=== PATIENT | female | born 1980 | race Caucasian/White ===

== ENCOUNTER 2020-03-25 20:10 | Observation (INO) | payer MEDICAID, SELFPAY ==
--- NOTE | ~2020-03-25 | CT_ITS ---
EXAMINATION: CT abdomen pelvis wo con DATE: 03/25/2020 23:43 INDICATION: Rectal pain. Rectal mass. TECHNIQUE: Computed tomography (CT) of the abdomen and pelvis was performed without intravenous contr ast. Automated exposure control and iterative reconstruction technique were employed. The dose-length product was 1377.33 mGy-cm. COMPARISON: CT abdomen and pelvis 10/30/2015 FINDINGS: The visualized portions of the lung bases demonstrate mild atelectasis. No pleural effusion . The heart size is normal. No pericardial effusion. The liver, gallbladder, spleen, pancreas, and ri ght adrenal gland are normal. There is a 1.9 cm mass in left adrenal gland measuring low-attenuation, consistent with an adenoma. The kidneys are normal. There is no urolithiasis. There is wall thickeni ng of the rectum with surrounding fat stranding. There is a 1.8 cm relatively low-attenuation mass in the wall of the rectum. There are no dilated loops of bowel. The appendix is normal. There are no pa thologically enlarged lymph nodes. There is no free intraperitoneal fluid. There is mild lumbar spond ylosis. IMPRESSION: 1. Proctitis. A 1.8 cm low-attenuation mass in the wall of the rectum may be phlegmon or developing a bscess. Reviewed, dictated and finalized at location A. IMPRESSION: 1. Proctitis. A 1.8 cm low-attenuation mass in the wall of the rectum may be ph legmon or developing abscess.
[2020-03-25 20:28] VITALS: BP 139/79; PULSE 107; RESP 18; TEMP 37; O2SAT 100
[2020-03-25 20:42] LABS: Basophils Percent Auto 0.4 % (0.2-1.2); Eosinophils Absolute Auto 0.4 K/mm3 (0-0.3); Eosinophils Percent Auto 3.3 % (0-4.4); Hematocrit 39.3 % (37.0-47.0); Hemoglobin 13.4 g/dL (12.0-15.0); Immature Granulocyte Absolute 0.04 K/mm3 (0.00-0.031); Immature Granulocyte Percent A 0.4 % (0-0.5); Lymphocytes Absolute Auto 1.41 K/mm3 (0.9-3.2); Lymphocytes Percent Auto 13.1 % (18.3-44.2); Mean Corpuscular HGB Conc 34.1 g/dl (32-36); Mean Corpuscular Hemoglobin 32.8 pg (26-34); Mean Corpuscular Volume 96.1 fl (80-100); Mean Platelet Volume 10.5 fl (7.4-10.4); Monocytes Absolute Auto 0.6 K/mm3 (0.1-0.6); Monocytes Percent Auto 5.9 % (2.6-8.5); Neutrophils Absolute Auto 8.3 K/mm3 (1.3-6.7); Neutrophils Percent Auto 76.9 % (45.5-73.1); Platelet Count Result 253 k/mm3 (150-375); Red Blood Count 4.09 M/mm3 (4.2-5.4); Red Cell Distribution Width 12.4 % (11.5-14.5); White Blood Count 10.7 K/mm3 (4.5-10.0)
[2020-03-25 20:51] LABS: Alanine Aminotransferase 108 U/L (4-35); Albumin Level 4.5 g/dL (3.5-5.1); Alkaline Phosphatase 101 U/L (38-126); Aspartate Amino Transferase 53 U/L (14-36); Bilirubin,Total 1.1 mg/dL (0.2-1.3); Blood Urea Nitrogen 15 mg/dL (7-17); Calcium 9.3 mg/dL (8.4-10.2); Carbon Dioxide 20 mmol/L (22-30); Chloride 108 mmol/L (98-107); Estimated Glomerular Filt Rate 55; Glucose 105 mg/dL (65-105); Lipase 181 U/L (23-300); Potassium 3.9 mmol/L (3.4-5.0); Sodium 137 mmol/L (137-145)
[2020-03-25 21:54] LABS: Add Urine Microscopic? YES; Appearance Urine Clear (Clear); Bacteria Urine Trace /hpf; Bilirubin Urine Negative (Negative); Blood Urine Negative (Negative); Color Urine Amber (Yellow); Glucose Urine UA Negative (Negative); Ketones Urine Negative (Negative); Leukocyte Esterase Ur Negative LEU/UL (Negative); Mucus Urine Rare /lpf; Nitrate Urine Negative (Negative); Protein Urine Negative (Negative); RBC Urine 0-2 /hpf (0-2); Specific Grav Ur 1.019 (1.001-1.035); Squamous Epithelial Cell Urine Moderate /hpf (Few); WBC Urine 0-3 /hpf
[2020-03-25 23:01] VITALS: BP 119/78; PULSE 85; O2SAT 100
--- NOTE | 2020-03-25 23:06 | ED.ABDPAIN ---
HPI - Abdominal Pain General Chief Complaint: Abdominal Pain Stated Complaint: rectal pressure Time Seen by Provider: 03/25/20 22:53 Source: patient Mode of arrival: ambulatory Limitations: no limitations History of Present Illness HPI narrative: This patient is a 39 year old female who presents for evaluation of rectal pressure. Patient states she has history of external and internal hemorrhoids, and she had hemorrhoid surgery by Dr. Weston 2 years ago. She reports severe rectal pressure x 3 days. She reports nausea but no vomiting or fever. She feels as if there is a blockage, and she states she has pain with having a bowel movement. She denies rectal bleeding. Her last bowel movement was yesterday. Related Data Home Medications Medication Instructions Recorded Confirmed albuterol sulfate 0.5 ml INHALATION BID 03/26/20 03/26/20 albuterol sulfate 90 puff INHALATION Q4-6H PRN 03/26/20 03/26/20 lisinopril 10 mg PO DAILY 03/26/20 03/26/20 topiramate 400 mg PO BID 03/26/20 03/26/20 Allergies Allergy/AdvReac Type Severity Reaction Status Date / Time Penicillins Allergy Mild HIVES,VOMIT Verified 01/02/14 16:19 ING codeine Allergy Unknown Verified 01/02/14 16:19 Review of Systems Review of Systems: All systems reviewed & are unremarkable except as noted in HPI and below Constitutional: Constitutional: Denies chills and Denies fever(s) Gastrointestinal: Gastrointestinal: Denies abdominal pain, Reports constipation, Denies diarrhea, Reports nausea and Denies vomiting Genitourinary: Genitourinary: Reports nocturia [facility] Past Medical History Medical History (Updated 03/26/20 @ 05:44 by Valencia Steward MD) Hemorrhoids Hypertension Sleep apnea Social History Social History (Updated 03/26/20 @ 05:42 by Valencia Steward MD) Smoking packs per day: 0.5 Smoking cigarettes per day: 10.0 Smoking status: Current every day smoker Alcohol intake: never Substance use: never Gender identity (if verbalized by the patient): Female Exam Const: General: alert Orientation/consciousness: patient oriented x3 Other: patient is tearful Chest: Chest palpation & inspection: normal inspection of the chest Resp: Effort & Inspection: normal respiratory effort and no retractions Auscultation: clear to auscultation bilaterally Cardio: Rate: regular rate Rhythm: regular rhythm Heart sounds: no murmurs GI: GI Palp: Yes Soft to palpation, No Tenderness to palpation present (GI), No Guarding due to palpation present (GI) and No Rigid due to palpation Rectal Exam: tenderness (posterior rectum with possible mass, no blood) Back/Spine/Pelvis: Back: no CVA tenderness Skin: General skin exam: normal color Rashes: no rashes Neuro: General: patient oriented x3 and moves all extremities Course Consultations Consultation #1: I Discussed case with Dr. Drummond who accepts patient to his service for rectal abscess Date: 03/26/20 Time: 00:37 Vital Signs Vital signs: Vital Signs Temperature 98.6 F 03/25/20 20:28 Pulse Rate 107 H 03/25/20 20:28 Respiratory Rate 18 03/25/20 20:28 Blood Pressure 139/79 03/25/20 20:28 Pulse Oximetry 100 03/25/20 20:28 Temperature 97.8 F 03/26/20 02:00 Pulse Rate 78 03/26/20 02:00 Respiratory Rate 18 03/26/20 02:00 Blood Pressure 119/71 03/26/20 02:00 Pulse Oximetry 98 03/26/20 02:00 MDM - Abdominal Pain Lab Data Attestation: I reviewed the patient's lab results. Result diagrams: 03/25/20 20:32 03/25/20 20:32 Labs: Lab Results 03/25/20 03/25/20 03/25/20 Range/Units 20:32 20:32 21:44 WBC 10.7 H (4.5-10.0) K/mm3 RBC 4.09 L (4.2-5.4) M/mm3 Hgb 13.4 (12.0-15.0) g/dL Hct 39.3 (37.0-47.0) % MCV 96.1 (80-100) fl MCH 32.8 (26-34) pg MCHC 34.1 (32-36) g/dl RDW 12.4 (11.5-14.5) % Plt Count 253 (150-375) k/mm3 MPV 10.5 H (7.4-10.4) fl Immature Gran % (
[2020-03-25] MEDS: ONDANSETRON INJ 4 MG/2 ML VIAL IV PUSH (23:16)
[2020-03-26] VITALS (14 sets, daily range): BP systolic 102–124; BP diastolic 51–81; PULSE 56–88; RESP 14–20; TEMP 36.2–36.8; O2SAT 95–100; BMI 40.6
--- NOTE | 2020-03-26 01:59 | PC.NURSE ---
100mL of Flagyl given, system would not allow me to chart. Discussed with ED charge nurse, paper filled out to send to pharmacy. Floor nurse made aware.
--- NOTE | 2020-03-26 02:15 | PC.NURSE ---
This patient, Carolina Shah, was admitted to [facility] Surg Room 311-01. Patient/family oriented to hospital policies and general routines including ID bracelet, bed and alarms, visiting hours, pain management, procedures, bathroom and other care routines, personal items, smoking policy, room service/diet, and visiting hours. Valuables list has been completed. Information on how to activate the Rapid Response Team has been discussed. Patient/Family are encouraged to report perceived risks to care and to ask questions if they do not understand what they are told or what they should do.
[2020-03-26] MEDS: LACTATED RINGERS 1,000 ML 125 ML IV CONT ×3 (02:48→17:22)
[2020-03-26] MEDS: WATER FOR IRRIGATION, STERILE 1,000 ML BOTTLE 1000 ML (03:55)
[2020-03-26 08:30] LABS: Glucose Point of Care 100 (65-105)
[2020-03-26] MEDS: metroNIDAZOLE 500 MG/ISO 100ML 500 MG/100 ML BAG 100 MG IVPB ×3 (08:32→17:26)
--- NOTE | 2020-03-26 10:09 | PM.IMHP ---
H&P: HPI History of Present Illness Chief complaint: rectal abscess Narrative: Carolina Shah is a 39 year old obese female with a history of COPD, asthma, obstructive sleep apnea, and IBS, who presented to the emergency department for evaluation of rectal pressure and pain. The patient reports first noticing rectal pressure about 3-4 days ago and felt it was difficult to have a bowel movement. The pressure continued to worsen. She thought initially that she was constipated and took a dose of her Linzess, which produced multiple loose bowel movements. She reports pain with bowel movements, but normal color and consistency for her. Denies any mucus or blood in the stool. She also reports associated nausea with a decreased appetite over the past 2 days. Denies fever or chills. Due to the persistent rectal pressure and pain, she presented to the emergency department for further evaluation. CT scan of the abdomen and pelvis showed proctitis with a 1.8 cm low-attenuation mass in the wall of the rectum that could be phlegmon or developing abscess. Labs revealed a white blood cell count 10,700, otherwise unremarkable labs. Our service was contacted and she was admitted for surgical evaluation and started on IV antibiotics and IV fluids. The patient is now being seen on the medical floor. She reports difficulty to start urination, but denies dysuria, hematuria, or any other urinary complaints. She has voided already this morning. Denies any recent trauma to the rectum or having anal intercourse. No recent antibiotic use. Denies a history of inflammatory bowel disease. Review of Systems Constitutional: Constitutional: Reports as per HPI, Denies chills, Denies excessive sweating, Denies fatigue, Denies fever(s), Denies headache(s), Reports poor appetite and Denies weakness Eyes: Eyes: Denies change in vision and Denies loss of vision ENT: Reports Normal hearing present, Denies dizziness and Denies headache(s) Cardiovascular: Cardiovascular: Denies chest pain, Denies syncope, Denies leg edema, Denies lightheadedness, Denies radiating jaw, neck or arm pain and Denies dyspnea Respiratory: Respiratory: Denies cough, Denies dyspnea and Denies wheezing Gastrointestinal: Gastrointestinal: Reports as per HPI, Reports no additional gastrointestinal complaints, Denies abdominal pain, Denies melena, Denies bloating, Denies hematochezia, Denies dysphagia, Denies fecal incontinence, Denies diarrhea, Reports nausea, Denies vomiting and Reports other (Rectal pressure and pain) Genitourinary: Genitourinary: Reports no additional female genitourinary complaints, Denies hematuria, Reports urinary frequency, Denies nocturia, Denies dysuria, Denies pelvic pain and Denies urinary urgency Musculoskeletal: Musculoskeletal: Denies deformity, Denies joint swelling, Denies radiating pain into limb and Denies tingling Integumentary/Breasts: Skin/Breast: Denies pruritus, Denies wounds and Denies jaundice Neurologic: Reports Normal hearing present, Denies confusion, Denies dizziness, Denies syncope, Denies headache(s), Denies loss of vision, Denies tingling, Denies tremor(s) and Denies weakness Psychiatric: Psychiatric: Denies anxiety, Denies confusion and Denies depression Endocrine: Endocrine: Denies cold intolerance, Denies excessive sweating and Denies heat intolerance Hematologic/Lymphatic: Hematologic/Lymphatic: Denies easy bleeding and Denies easy bruising PMFSH Past Medical History Medical History (Updated 03/26/20 @ 10:34 by JEAN CLAUDE Dash) Asthma COPD (chronic obstructive pulmonary disease) Hemorrhoids History of diabetes mellitus, type II Previously on oral medication a over 3 years ago, but was taken off the medication once she had more than 150 pound weight loss. Hypertension Irritable bowel syndrome (IBS) with constipation. Takes Linzess as needed. Sleep apnea compliant with CPAP Surgical History Surgical History (Updated 03/26/20 @ 10
[2020-03-26] MEDS: ONDANSETRON INJ 4 MG/2 ML VIAL IV PUSH (13:30)
[2020-03-26 13:50] LABS: Glucose Point of Care 87 (65-105)
--- NOTE | 2020-03-26 13:55 | WPDANESEPPF ---
Anes - Initial Pre Proc Eval Procedure: Operation Date: 03/26/20 14:30 Proposed Procedures p Rectal Exam Under Anesthesia, - Erickson Drummond DO s Possible Incision and Drainage Adriana Rectal Abscess - Erickosn Drummond DO Date/Time: 03/26/20 13:55 Surgeon: Erickson Drummond DO Pre Op Diagnosis: rectal abscess Patient Data Age: 39 Gender: F Height: 5 ft 5 in Weight: 110.9 kg Last Vital Signs Temp 98.2 F 03/26/20 06:00 Pulse 67 03/26/20 06:00 Resp 20 03/26/20 06:00 BP 115/59 L 03/26/20 06:00 Pulse Ox 99 03/26/20 06:00 Allergies Allergy/AdvReac Type Severity Reaction Status Date / Time Penicillins Allergy Mild HIVES,VOMIT Verified 01/02/14 16:19 ING codeine Allergy Unknown Verified 01/02/14 16:19 Home Medications Medication Instructions Recorded Confirmed Type albuterol sulfate 0.5 ml INHALATION BID 03/26/20 03/26/20 History albuterol sulfate 90 puff INHALATION Q4-6H PRN 03/26/20 03/26/20 History lisinopril 10 mg PO DAILY 03/26/20 03/26/20 History topiramate 400 mg PO BID 03/26/20 03/26/20 History Laboratory Tests 03/25/20 03/25/20 03/25/20 20:32 20:32 21:44 WBC 10.7 K/mm3 H K/mm3 (4.5-10.0) RBC 4.09 M/mm3 L M/mm3 (4.2-5.4) Hgb 13.4 g/dL g/dL (12.0-15.0) Hct 39.3 % % (37.0-47.0) MCV 96.1 fl fl (80-100) MCH 32.8 pg pg (26-34) MCHC 34.1 g/dl g/dl (32-36) RDW 12.4 % % (11.5-14.5) Plt Count 253 k/mm3 k/mm3 (150-375) MPV 10.5 fl H fl (7.4-10.4) Immature Gran % (Auto) 0.4 % % (0-0.5) Neut % (Auto) 76.9 % H % (45.5-73.1) Lymph % (Auto) 13.1 % L % (18.3-44.2) [place] % (Auto) 5.9 % % (2.6-8.5) Eos % (Auto) 3.3 % % (0-4.4) Baso % (Auto) 0.4 % % (0.2-1.2) Lymph # (Auto) 1.41 K/mm3 K/mm3 (0.9-3.2) [place] # (Auto) 0.6 K/mm3 K/mm3 (0.1-0.6) Eos # (Auto) 0.4 K/mm3 H K/mm3 (0-0.3) Baso # (Auto) 0.0 K/mm3 K/mm3 (0.0-0.1) Abs Immat Gran (auto) 0.04 K/mm3 H K/mm3 (0.00-0.031) Absolute Neuts (auto) 8.3 K/mm3 H K/mm3 (1.3-6.7) Absolute Nucleated RBC 0.0 K/mm3 K/mm3 (0.0-0.012) Nucleated RBC % 0.0 % % (0.0-0.2) Sodium 137 mmol/L mmol/L (137-145) Potassium 3.9 mmol/L mmol/L (3.4-5.0) Chloride 108 mmol/L H mmol/L (98-107) Carbon Dioxide 20 mmol/L L mmol/L (22-30) BUN 15 mg/dL mg/dL (7-17) Creatinine 1.10 mg/dL H mg/dL (0.7-1.0) Estim Creat Clear Calc Not Reportable Estimated GFR 55 L (59 - ) Glucose 105 mg/dL mg/dL (65-105) POC Capillary Glucose Calcium 9.3 mg/dL mg/dL (8.4-10.2) Total Bilirubin 1.1 mg/dL mg/dL (0.2-1.3) AST 53 U/L H U/L (14-36) ALT 108 U/L H U/L (4-35) Alkaline Phosphatase 101 U/L U/L (38-126) Total Protein 8.0 g/dL g/dL (6.3-8.2) Albumin 4.5 g/dL g/dL (3.5-5.1) Lipase 181 U/L U/L (23-300) Urine Color Jan[place] (Yellow) Urine Appearance Clear (Clear) Urine pH 7.0 (5.0-9.0) Ur Specific [place] 1.019 (1.001-1.035) Urine Protein Negative mg/dL mg/dL (Negative) Urine Glucose (UA) Negative mg/dL mg/dL (Negative) Urine Ketones Negative mg/dL mg/dL (Negative) Ur Blood (Man) Negative (Negative) Urine Nitrate Negative (Negative) Urine Bilirubin Negative (Negative) Urine Urobilinogen 4.0 mg/dL H mg/dL (<2.0) Leukocyte Esterase Rfl Negative SHABNAM/UL SHABNAM/UL (Negative) Urine RBC 0-2 /hpf /hpf (0-2) Urine WBC 0-3 /hpf /hpf Ur Squamous Epith Cells Moderate /hpf H /hpf (Few) Urine Bacteria Trace /hpf /hpf Hyaline C
[2020-03-26] MEDS: DEXTROSE 50% 25 GM/50 ML SYRINGE IV PUSH (13:58)
[2020-03-26] MEDS: LACTATED RINGERS 1,000 ML 30 ML IV CONT (14:09)
[2020-03-26 14:52] LABS: Glucose Point of Care 113 (65-105)
[2020-03-26] MEDS: BUPIVACAINE/EPINEPHRINE 0.5% 30 ML VIAL INFILTRATE (15:18)
[2020-03-26] MEDS: ALBUTEROL SULFATE NEB 2.5 MG/3 ML INH INHALATION (16:04)
--- NOTE | 2020-03-26 16:52 | P.OP_ITS ---
Procedure Note - Detailed Date of procedure: 03/26/20 Pre-op diagnosis: Rectal pain, proctitis Post-op diagnosis: same Procedure performed: Rectal exam under anesthesia Description of procedure: * procedure as well as risks, benefits, and alternatives were discussed with the patient. Written consent was obtained and placed in chart prior to procedure. Patient was brought back to surgical suite. She was placed supine on operating table. Time-out was done to confirm patient and procedure. She was then repositioned into dorsal lithotomy position. IV sedation was administered by the anesthesia department. Her perirectal region was prepped and draped in sterile fashion using Betadine prep. Digital rectal exam was initially performed. No palpable mass was noted. A [place]-Ariza anoscope was then inserted and the anal rectal canal was carefully inspected. In the right posterior region there appeared to be a firm area of the rectum. No definite fluctuance was identified. A small incision was made over the area of firm rectal mucosa, no significant purulence drainage was noted. Careful perianal exam was also performed and no evidence of fluctuance on the skin surface was noted. After carefully inspecting the remainder of the anal rectal canal, no other abnormalities were noted. The rectum was irrigated with sterile saline and hemostasis appeared adequate. Fluff gauze was applied followed by mesh underwear. Patient was then awakened from anesthesia and transferred to recovery. Anesthesia: GLMA Surgeon: Erickson Drummond DO Estimated blood loss (mL): 2 Drains: No Packing: No Pathology: none sent Complications: No immediate complications Condition: stable Disposition: floor Findings: This is a 39-year-old woman who presented to the emergency department with rectal pain over the past 4 days. She denied any fevers or chills, and denies any palpable mass. She is experiencing tenesmus and has not been able to have much of a bowel movement for the past 4 days. She does have a history of hemorrhoids, but denies any recent problems. In the emergency department a CT of her pelvis was performed and this showed evidence of proctitis with possible phlegmon or abscess developing. Discussions were made with the patient about treatment options, and decision was made to proceed with rectal exam under anesthesia with possible incision and drainage of perirectal abscess. Rectal exam under anesthesia was performed. After careful inspection under anesthesia, proctitis was noted particularly in the right posterior region of the rectum at approximately 6-8 cm from the anal verge. There is no definite fluctuance, and a small incision was made over this area and no purulence dr airasheed was noted. No other masses or abnormalities were noted. No specimens were obtained for pathology.
[2020-03-26] MEDS: PROMETHAZINE HCL 25 MG/ML AMPUL 12.5 MG IV PUSH (17:36)
[2020-03-26 18:35] LABS: Glucose Point of Care 92 (65-105)
[2020-03-26 23:29] LABS: Glucose Point of Care 133 (65-105)
[2020-03-27] MEDS: metroNIDAZOLE 500 MG/ISO 100ML 500 MG/100 ML BAG 100 MG IVPB ×5 (00:16→23:28)
[2020-03-27 02:09] VITALS: BP 113/65; PULSE 76; RESP 18; TEMP 36.3; O2SAT 100
[2020-03-27] MEDS: LACTATED RINGERS 1,000 ML 125 ML IV CONT (03:24)
[2020-03-27 06:10] VITALS: BP 127/77; PULSE 76; RESP 18; TEMP 36.2; O2SAT 99
[2020-03-27 06:30] LABS: Basophils Percent Auto 0.1 % (0.2-1.2); Eosinophils Absolute Auto 0.1 K/mm3 (0-0.3); Eosinophils Percent Auto 1.3 % (0-4.4); Hemoglobin 11.3 g/dL (12.0-15.0); Immature Granulocyte Absolute 0.02 K/mm3 (0.00-0.031); Immature Granulocyte Percent A 0.2 % (0-0.5); Lymphocytes Absolute Auto 1.47 K/mm3 (0.9-3.2); Lymphocytes Percent Auto 17.4 % (18.3-44.2); Mean Corpuscular HGB Conc 33.2 g/dl (32-36); Mean Corpuscular Hemoglobin 31.9 pg (26-34); Mean Platelet Volume 10.7 fl (7.4-10.4); Monocytes Absolute Auto 0.4 K/mm3 (0.1-0.6); Monocytes Percent Auto 5.1 % (2.6-8.5); Neutrophils Absolute Auto 6.4 K/mm3 (1.3-6.7); Neutrophils Percent Auto 75.9 % (45.5-73.1); Platelet Count Result 237 k/mm3 (150-375); Red Blood Count 3.54 M/mm3 (4.2-5.4); White Blood Count 8.4 K/mm3 (4.5-10.0)
[2020-03-27 06:47] LABS: Alanine Aminotransferase 105 U/L (4-35); Albumin Level 3.6 g/dL (3.5-5.1); Alkaline Phosphatase 79 U/L (38-126); Aspartate Amino Transferase 48 U/L (14-36); Bilirubin,Total 0.8 mg/dL (0.2-1.3); Blood Urea Nitrogen 13 mg/dL (7-17); Calcium 8.9 mg/dL (8.4-10.2); Carbon Dioxide 21 mmol/L (22-30); Chloride 108 mmol/L (98-107); Estimated CRCL calculation 82 ml/min; Estimated Glomerular Filt Rate > 60; Glucose 90 mg/dL (65-105); Sodium 138 mmol/L (137-145)
--- NOTE | 2020-03-27 07:40 | PM.PNGS ---
Progress Note: A&P Assessment and Plan (1) Proctitis: Code(s): K62.89 - Other specified diseases of anus and rectum Status: Acute Assessment and Plan: Continue Levaquin and flagyl Stool softeners Await GI Eval (2) Sleep apnea: Code(s): G47.30 - Sleep apnea, unspecified Status: Acute (3) Tobacco abuse: Code(s): Z72.0 - Tobacco use Status: Acute (4) COPD (chronic obstructive pulmonary disease): Code(s): J44.9 - Chronic obstructive pulmonary disease, unspecified Status: Acute Subjective Subjective Date/Time Seen: 03/27/20 07:40 Still having rectal pain. No bleeding noted. No fevers. Exam GI: Other: No perianal/perirectal abscess evident Objective Data Vital Signs Vital Signs: Vital Signs - 24 hr 03/26/20 13:35 03/26/20 15:38 03/26/20 15:50 Temperature 36.7 C 36.3 C L Pulse Rate 56 L 85 65 Respiratory Rate 18 20 18 Blood Pressure 103/51 L 113/79 102/51 L Pulse Oximetry 98 95 95 03/26/20 16:05 03/26/20 16:20 03/26/20 16:25 Temperature 36.4 C L Pulse Rate 64 63 61 Respiratory Rate 16 18 18 Blood Pressure 107/70 105/70 121/81 Pulse Oximetry 100 96 97 03/26/20 16:40 03/26/20 17:10 03/26/20 18:10 Temperature 36.4 C L 36.5 C 36.8 C Pulse Rate 61 64 65 Respiratory Rate 16 16 16 Blood Pressure 121/81 124/78 115/61 Pulse Oximetry 97 97 99 03/26/20 22:00 03/27/20 02:09 03/27/20 06:10 Temperature 36.2 C L 36.3 C L 36.2 C L Pulse Rate 88 76 76 Respiratory Rate 18 18 18 Blood Pressure 118/69 113/65 127/77 Pulse Oximetry 100 100 99 Intake/Output Intake/Output: Intake & Output 03/24/20 03/25/20 03/26/20 03/27/20 23:59 23:59 23:59 23:59 Intake Total 2700 1450 Output Total 200 500 Balance 2500 950 Meds/Results Medications: Active Medications Generic Name Dose Route Start Last Admin Trade Name Freq PRN Reason Stop Dose Admin Acetaminophen 1,000 mg 03/27/20 07:39 Tylenol Tablet PO Q6H PRN Mild Pain (1-3) or Fever Hydromorphone HCl 0.5 mg 03/26/20 00:38 03/27/20 03:22 Dilaudid Inj IV PUSH 0.5 mg Q4H PRN Administration Pain Rated 7-10 Levofloxacin/Dextrose 750 mg in 150 mls @ 100 mls/hr 03/27/20 06:00 03/27/20 05:41 Levaquin 750 Mg/D5w 150 Ml IVPB 100 mls/hr Q24H ESTEPHANIA Administration Metronidazole 500 mg in 100 mls @ 100 mls/hr 03/26/20 07:00 03/27/20 06:37 Flagyl 500 Mg/Iso Soln 100 Ml IVPB 100 mls/hr Q6HR ESTEPHANIA Infusion Lisinopril 10 mg 03/27/20 09:00 Prinivil PO DAILY ESTEPHANIA Non-Formulary Medication 0.5 ml 03/26/20 17:00 Albuterol Sulfate INHALATION 04/25/20 17:01 BID ESTEPHANIA Non-Formulary Medication 400 mg 03/26/20 17:00 Topiramate PO 04/25/20 17:01 BID ESTEPHANIA Promethazine HCl 12.5 mg 03/26/20 00:38 03/26/20 17:36 Phenergan Inj IV PUSH 12.5 mg Q6H PRN Administration Nausea Radiology Results: ITS Impressions Abdomen/Pelvis CT 03/25/20 23:46 IMPRESSION: 1. Proctitis. A 1.8 cm low-attenuation mass in the wall of the rectum may be phlegmon or developing abscess. Labs Labs: Laboratory Results - last 24 hr 03/26/20 03/26/20 03/26/20 08:26 12:04 13:47 WBC RBC Hgb Hct MCV MCH MCHC RDW Plt Count MPV Immature Gran % (Auto) Neut % (Auto) Lymph % (Auto) [place] % (Auto) Eos % (Auto) Baso % (Auto) Lymph # (Auto) [place] # (Auto) Eos # (Auto) Baso # (Auto) Abs Immat Gran (auto) Absolute Neuts (auto) Absolute Nucleated RBC Nucleated RBC % Sodium Potassium Chloride Carbon Dioxide BUN Creatinine Estim Creat Clear Calc Estimated GFR Glucose POC Capillary Glucose 100 92 87 Calcium Total Bilirubin AST ALT Alkaline Phosphatase Total Protein Albumin 03/26/20 03/26/20 03/27/20 14:49 22:00 06:05 WBC 8.4 RBC 3.54 L Hgb 11.3 L Hct 34.0 L MCV 96.0 MCH
--- NOTE | 2020-03-27 07:57 | WPDANESPN ---
Anes - Prog Note Post-Op Date/Time: 03/27/20 07:57 Cardiovascular status: normal Respiratory status: normal Airway patency: baseline Mental status: baseline Post-Op hydration status: normal Vital Signs: Last Vital Signs Temp 36.2 C L 03/27/20 06:10 Pulse 76 03/27/20 06:10 Resp 18 03/27/20 06:10 BP 127/77 03/27/20 06:10 Pulse Ox 99 03/27/20 06:10 I/O: Intake & Output 03/26/20 03/26/20 03/27/20 15:59 23:59 07:59 Intake Total 2200 350 1450 Output Total 200 500 Balance 2200 150 950 Laboratory Tests 03/27/20 06:05 03/27/20 06:05 03/26/20 03/26/20 03/26/20 08:26 12:04 13:47 WBC RBC Hgb Hct MCV MCH MCHC RDW Plt Count MPV Immature Gran % (Auto) Neut % (Auto) Lymph % (Auto) [place] % (Auto) Eos % (Auto) Baso % (Auto) Lymph # (Auto) [place] # (Auto) Eos # (Auto) Baso # (Auto) Abs Immat Gran (auto) Absolute Neuts (auto) Absolute Nucleated RBC Nucleated RBC % Sodium Potassium Chloride Carbon Dioxide BUN Creatinine Estim Creat Clear Calc Estimated GFR Glucose POC Capillary Glucose 100 92 87 Calcium Total Bilirubin AST ALT Alkaline Phosphatase Total Protein Albumin 03/26/20 03/26/20 03/27/20 14:49 22:00 06:05 WBC 8.4 RBC 3.54 L Hgb 11.3 L Hct 34.0 L MCV 96.0 MCH 31.9 MCHC 33.2 RDW 12.0 Plt Count 237 MPV 10.7 H Immature Gran % (Auto) 0.2 Neut % (Auto) 75.9 H Lymph % (Auto) 17.4 L [place] % (Auto) 5.1 Eos % (Auto) 1.3 Baso % (Auto) 0.1 L Lymph # (Auto) 1.47 [place] # (Auto) 0.4 Eos # (Auto) 0.1 Baso # (Auto) 0.0 Abs Immat Gran (auto) 0.02 Absolute Neuts (auto) 6.4 Absolute Nucleated RBC 0.0 Nucleated RBC % 0.0 Sodium Potassium Chloride Carbon Dioxide BUN Creatinine Estim Creat Clear Calc Estimated GFR Glucose POC Capillary Glucose 113 H 133 H Calcium Total Bilirubin AST ALT Alkaline Phosphatase Total Protein Albumin 03/27/20 06:05 WBC RBC Hgb Hct MCV MCH MCHC RDW Plt Count MPV Immature Gran % (Auto) Neut % (Auto) Lymph % (Auto) [place] % (Auto) Eos % (Auto) Baso % (Auto) Lymph # (Auto) [place] # (Auto) Eos # (Auto) Baso # (Auto) Abs Immat Gran (auto) Absolute Neuts (auto) Absolute Nucleated RBC Nucleated RBC % Sodium 138 Potassium 4.0 Chloride 108 H Carbon Dioxide 21 L BUN 13 Creatinine 1.00 Estim Creat Clear Calc 82 Estimated GFR > 60 Glucose 90 POC Capillary Glucose Calcium 8.9 Total Bilirubin 0.8 AST 48 H ALT 105 H Alkaline Phosphatase 79 Total Protein 7.0 Albumin 3.6 Post-procedural complaints: none Patient Feedback: Patient satisfied with anesthetic care.
[2020-03-27 08:27] LABS: Glucose Point of Care 103 (65-105)
[2020-03-27] MEDS: lisinopriL 10 MG TABLET PO (08:54)
[2020-03-27 10:18] VITALS: BP 111/59; PULSE 77; RESP 18; TEMP 36.4; O2SAT 98
[2020-03-27 10:37] LABS: Glucose Point of Care 80 (65-105)
[2020-03-27] MEDS: polyethylene glycoL 3350 17 GM POWD.PACK PO (12:08)
[2020-03-27 12:40] LABS: Glucose Point of Care 83 (65-105)
[2020-03-27 14:10] VITALS: BP 134/65; PULSE 61; RESP 18; TEMP 36.6; O2SAT 100
--- NOTE | 2020-03-27 16:19 | WPDGICN ---
Assessment and Plan Assessment and plan (1) Proctitis: Code(s): K62.89 - Other specified diseases of anus and rectum Status: Acute Assessment and Plan: given findings of proctitis will start rose marie moss reviewed findings of CT scan and surgery notes had colonoscopy 2 years ago and she is established with GI in [place]. (2) Abscess of rectum: Code(s): K61.1 - Rectal abscess Status: Acute Assessment and Plan: on iv antibiotics, could not be drained by surgery when had proctoscopy (3) Morbid obesity with BMI of 40.0-44.9, adult: Code(s): E66.01 - Morbid (severe) obesity due to excess calories; Z68.41 - Body mass index (BMI) 40.0-44.9, adult Status: Acute (4) Constipation: Code(s): K59.00 - Constipation, unspecified Status: Acute Assessment and Plan: she was using linzess prn ok to advance diet as tolerated (5) Tobacco abuse: Code(s): Z72.0 - Tobacco use Status: Acute (6) COPD (chronic obstructive pulmonary disease): Code(s): J44.9 - Chronic obstructive pulmonary disease, unspecified Status: Acute GI Consult Note Consult date/time: 03/27/20 16:19 Reason for consult: proctitis, rectal pressure HPI: Carolina Shah is a 39 year old female with history of COPD, asthma, obstructive sleep apnea, obesity, hemorrhoidectomy 2 years ago and IBS constipation for which she is seeing GI doctor at [facility]. She came to the emergency department because rectal pressure and pain for almost 4 days ago, also more difficulty than usual to have a bowel movement, she took linzess than is using as needed and had a loose bowel movements, she even thought that could have a UTI. Denies any mucus or blood in the stool. No fever or chills. CT scan of the abdomen and pelvis showed proctitis with a 1.8 cm low-attenuation mass in the wall of the rectum that could be phlegmon or developing abscess. white blood cell count 10,700. Yesterday she had proctoscopy with EUA, found to have proctitis in the right posterior region of the rectum at approximately 6-8 cm from the anal verge. No definite fluctuance, and a small incision was made over this area and no purulence drainage was noted. No other masses or abnormalities were noted. She is still experiencing similar symptoms. Had colonoscopy about 2 years ago just before hemorrhoidectomy and apparently was normal. No h/o IBD. Review of Systems Constitutional: Constitutional: Denies headache(s) and Denies weakness Eyes: Eyes: Denies blurry vision ENT: Reports Normal hearing present, Denies headache(s) and Denies neck pain Cardiovascular: Cardiovascular: Denies chest pain and Denies dyspnea Respiratory: Respiratory: Denies dyspnea Gastrointestinal: Gastrointestinal: Reports abdominal pain and Reports constipation Genitourinary: Genitourinary: Denies dysuria Musculoskeletal: Musculoskeletal: Denies neck pain Integumentary/Breasts: Skin/Breast: Denies dry skin Neurologic: Reports Normal hearing present, Denies headache(s) and Denies weakness Psychiatric: Psychiatric: Denies anxiety Endocrine: Endocrine: Denies change in body appearance Hematologic/Lymphatic: Hematologic/Lymphatic: Denies easy bleeding Allergic/Immunologic: Allergic/Immunologic: Denies urticaria PMF Past Medical History Medical History (Updated 03/27/20 @ 16:24 by Arnulfo Anders MD) Asthma Constipation COPD (chronic obstructive pulmonary disease) Hemorrhoids History of diabetes mellitus, type II Previously on oral medication a over 3 years ago, but was taken off the medication once she had more than 150 pound weight loss. Hypertension Irritable bowel syndrome (IBS) with constipation. Takes Linzess as needed. Sleep apnea compliant with CPAP Surgical History Surgical History (Updated 03/26/20 @ 10:45 by JEAN CLAUDE Dash) History of section x 3 with tubal ligation on last . Hist
[2020-03-27 17:31] LABS: Glucose Point of Care 82 (65-105)
[2020-03-27] MEDS: MESALAMINE 1,000 MG SUPP.RECT 1000 MG RECTAL (21:49)
[2020-03-27 21:56] LABS: Glucose Point of Care 129 (65-105)
[2020-03-27 22:00] VITALS: BP 115/72; PULSE 64; RESP 20; TEMP 36.6; O2SAT 99
[2020-03-28 06:00] VITALS: BP 101/67; PULSE 66; RESP 20; TEMP 36.6; O2SAT 99
[2020-03-28] MEDS: metroNIDAZOLE 500 MG/ISO 100ML 500 MG/100 ML BAG 100 MG IVPB (06:02)
[2020-03-28 08:17] LABS: Glucose Point of Care 99 (65-105)
[2020-03-28] MEDS: lisinopriL 10 MG TABLET PO (08:48)
[2020-03-28] MEDS: polyethylene glycoL 3350 17 GM POWD.PACK PO (08:48)
[2020-03-28 10:47] VITALS: O2SAT 98
--- NOTE | 2020-04-05 14:46 | PM.DS ---
DS: Admitting Diagnosis Admitting Diagnosis Admitting Diagnosis: Proctitis DS: Discharge Diagnosis Discharge Diagnosis (1) Proctitis: Code(s): K62.89 - Other specified diseases of anus and rectum Status: Acute DS: Summary Hospital Course Reason for hospitalization: proctitis with possible perirectal abscess Hospital Course: this is a 39-year-old woman who presented to the emergency department on 03/25/2020 with severe rectal pain and tenesmus. CT in the emergency department showed evidence of proctitis and a 1.8 cm soft tissue density which may be developing phlegmon or abscess. She was placed on broad-spectrum antibiotics and was admitted to the hospital for further treatment. She underwent rectal exam under anesthesia on 03/26/2020. Inflammation was noted but no abscess was identified. Gastroenterology was then consulted for further evaluation. She had had a recent colonoscopy about 2 years ago in [place] and has a data processing control clerk down there. Dr. Pink recommended Canasa suppositories and follow-up with a [facility] data processing control clerk as an outpatient. She was able to tolerate a regular diet and was discharged home on 03/28. Time spent discussing smoking cessation with patient: 3 to 10 minutes Status at Discharge Functional status at discharge: independent ambulation Overall status at discharge: patient is progressing back to baseline Time Spent with Patient Time attestation: Total time spent providing and/or coordinating discharge services: Time spent: Less than 30 minutes Discharge Plan Discharge Attending physician on discharge: Erickson Drummond Consulting providers: Arnulfo Anders ; Jaime Quesada V. ; Tamera Hadley Discharging Clinician: Erickson Drummond Patient Disposition: Home, Self-Care Activity: unlimited Diet: as tolerated Discharge Instructions: Follow up with Gastroenterolgist in [place] as scheduled next week Patient Instructions: Antibiotic Form, How to Stop Smoking (DC) Stand Alone Forms: General Discharge Information Follow-up/Referrals: Damien,Avtar English MD [Primary Care Provider] - Follow Up with Primary Dr Discharge Medications: New levofloxacin [Levaquin] 750 mg tablet 750 mg PO DAILY Qty: 7 RF: 0 metronidazole [Flagyl] 500 mg tablet 500 mg PO Q8H Qty: 21 RF: 0 mesalamine [Canasa] 1,000 mg suppository 1 gm RECTAL HS Qty: 30 RF: 0 hydrocodone-acetaminophen [[place]] 5-325 mg tablet 1 tablet PO Q4H PRN (Reason: pain) Qty: 10 RF: 0 Continued lisinopril 10 mg Tablet 10 mg PO DAILY RF: 0 albuterol sulfate 90 puff inhalation Q4-6H PRN (Reason: Asystole) RF: 0 topiramate 400 mg PO BID RF: 0 albuterol sulfate 0.5 ml inhalation BID RF: 0 Date of admission: 03/26/20 00:38 Primary Care Provider: DamienAvtar Admitting Provider: Erickson Drummond Discharge Date/Time: 03/28/20 11:10 Attending physician on admission: Erickson Drummond Condition: Stable Quality VTE Prophylaxis VTE prophylaxis: mechanical ordered
== END 2020-03-28 11:10 | disposition home or self-care (01) ==
LOC: ANHED 03-26 00:37 → ANH3MEDSUR 03-26 00:48
PROVIDERS: Admitting Provider Surgery; Emergency Provider General Practice; PCP Internal Medicine; Visit Provider Surgery
PROC: (CPT 45990; principal; 2020-03-26 14:30)
DX: K62.89 Other specified diseases of anus and rectum (principal); K61.1 Rectal abscess; J44.9 Chronic obstructive pulmonary disease, unspecified; G47.33 Obstructive sleep apnea (adult) (pediatric); K58.1 Irritable bowel syndrome with constipation; I10 Essential (primary) hypertension; E66.01 Morbid (severe) obesity due to excess calories; F17.210 Nicotine dependence, cigarettes, uncomplicated; Z68.41 Body mass index [BMI] 40.0-44.9, adult
CPT/HCPCS: 45990; 36415; 74176; 80053; 81001; 81025; 83690; 85025; 94640; 96361; 96365; 96366; 96367; 96374; 96375; 96376; 99285; A9270; G0378; G0379; J1170; J1956; J2250; J2405; J2550; J3010; J7120

== ENCOUNTER 2020-09-25 15:21 | Emergency (ER) | payer MEDICAID, SELFPAY ==
--- NOTE | ~2020-09-25 | XR_ITS ---
EXAMINATION: XR shoulder LT min 2V DATE: 09/25/2020 17:33 INDICATION: Several months of anterior left shoulder pain. Tendinitis.. TECHNIQUE: AP internally and externally rotated, AP oblique externally rotated and transscapular Y vi ews of the left shoulder were obtained. COMPARISON: 10/22/2010 FINDINGS: Normal alignment. No fracture. Glenohumeral joint is normal. Minimal acromioclavicular osteoarthriti s. Soft tissues are unremarkable. Visualized portions of the lungs are clear. IMPRESSION: Minimal acromioclavicular osteoarthritis. Reviewed, dictated and finalized at location A. ION STYLIST
[2020-09-25 15:32] VITALS: BP 116/71; PULSE 73; RESP 16; TEMP 36.6; O2SAT 99
[2020-09-25] MEDS: KETOROLAC (*BKC) 60 MG/2 ML VIAL IM (17:26)
--- NOTE | 2020-09-25 17:37 | ED.GENADULT ---
HPI - General Adult General Chief complaint: Extremity Problem,Nontraumatic Stated complaint: lt shoulder pain x 1 month Time Seen by Provider: 09/25/20 17:16 Source: RN notes reviewed History of Present Illness HPI narrative: Patient presents to emergency department from home for left shoulder pain. She states that shows been bothering her for the last several months but got worse in the past week she denies any direct trauma or injury to the shoulder. States the pain is located over the anterior shoulder and worse with movement of the shoulder she denies any fevers or chills chest pain shortness of breath numbness or tingling in the extremity elbow or wrist pain or any other symptoms Related Data Home Medications Medication Instructions Recorded Confirmed albuterol sulfate 0.5 ml INHALATION BID 03/26/20 03/26/20 albuterol sulfate 90 puff INHALATION Q4-6H PRN 03/26/20 03/26/20 lisinopril 10 mg PO DAILY 03/26/20 03/26/20 topiramate 400 mg PO BID 03/26/20 03/26/20 Allergies Allergy/AdvReac Type Severity Reaction Status Date / Time Penicillins Allergy Mild HIVES,VOMIT Verified 09/25/20 17:20 ING codeine Allergy Unknown Other Verified 09/25/20 17:20 Review of Systems Review of Systems: Narrative: Gen.: Denies fevers or chills CV: Denies chest pain Respiratory: Denies shortness of breath Musculoskeletal: See HPI Neuro: Denies numbness, tingling, weakness Skin: Denies rash Endo: Denies DM PMFSH Past Medical History Medical History Asthma Constipation COPD (chronic obstructive pulmonary disease) Hemorrhoids History of diabetes mellitus, type II Previously on oral medication a over 3 years ago, but was taken off the medication once she had more than 150 pound weight loss. Hypertension Irritable bowel syndrome (IBS) with constipation. Takes Linzess as needed. Sleep apnea compliant with CPAP Surgical History Surgical History (Updated 03/26/20 @ 10:45 by JEAN CLAUDE Dash) History of section x 3 with tubal ligation on last . History of colonoscopy 2 years ago prior to hemorrhoid intervention that was reportedly normal other than findings of the hemorrhoids. History of hemorrhoidectomy History of ventral hernia repair more than 17 years ago. Family History Family History Grandparent Crohn disease Mother Diabetes mellitus Social History Social History Social History: PCP: Dr. Quezada Smoking packs per day: 0.5 Smoking cigarettes per day: 10.0 Years smoked: 24 Smoking pack-years: 12.00 Smoking status: Current every day smoker Tobacco type: cigarettes Alcohol intake: current Substance use: never Additional living arrangements comments: Her aunt and oldest daughter live with her. Additional occupation/education comments: Works at [employer]. Gender identity (if verbalized by the patient): Female Spiritual care concerns: No Exam Narrative: Exam Narrative: APPEARANCE: No acute distress, nontoxic, resting in bed EYES: EOMI HEENT: Normocephalic, atraumatic, OMM RESPIRATORY: No respiratory distress Clear to auscultation bilaterally with no rhonchi wheezing or rales. CARDIOVASCULAR: Regular rate and rhythm without murmurs rubs or gallops. MUSCULOSKELETAl: Moves all extremities. No clubbing, cyanosis or edema. Palpation of the left anterior shoulder pain with flexion abduction greater than 90 degrees, no tenderness of the left elbow or wrist, radial pulse 2+, neurovascular intact NEURO: Awake and alert. Following commands, speech normal, no focal deficits SKIN:: Warm, dry. No rashes lesions or abrasions PSYCHIATRIC: Normal affect/mood, Course Vital Signs Vital signs: Vital Signs Temperature 97.8 F 09/25/20 15:32 Pulse Rate 73 09/25/20 15:32 Respiratory Rate 16 09/25/20 15:32
== END 2020-09-25 17:59 | disposition home or self-care (01) ==
PROVIDERS: Emergency Provider Emergency Medicine; PCP Internal Medicine
DX: M25.512 Pain in left shoulder (principal); J44.9 Chronic obstructive pulmonary disease, unspecified; E11.9 Type 2 diabetes mellitus without complications; I10 Essential (primary) hypertension; K58.9 Irritable bowel syndrome, unspecified; G47.30 Sleep apnea, unspecified; F17.210 Nicotine dependence, cigarettes, uncomplicated; M19.012 Primary osteoarthritis, left shoulder
CPT/HCPCS: 73030; 96372; 99283; J1885

== ENCOUNTER 2021-06-11 12:20 | Emergency (ER) | payer OTHER, MEDICAID, SELFPAY ==
--- NOTE | ~2021-06-11 | XR_ITS ---
XR lumbar spine 2-3V DATE: 06/11/2021 13:38 INDICATION: Slipped on ice at work. TECHNIQUE: AP, lateral and coned lateral lumbosacral views COMPARISON: None FINDINGS: There is normal alignment of the lumbar spine. No fracture or bone destruction or spondylo listhesis. The lumbar pedicles are intact. Lumbar and lumbosacral interspaces are well preserved. The sacroiliac joints are intact. IMPRESSION: No significant abnormality Reviewed, dictated and finalized at location B. IMPRESSION: No significant abnormality
[2021-06-11 12:27] VITALS: BP 110/58; PULSE 88; RESP 18; TEMP 36.2; O2SAT 100
[2021-06-11 13:02] VITALS: BP 110/58; PULSE 88; RESP 16; TEMP 37.1; O2SAT 100
[2021-06-11] MEDS: KETOROLAC 30 MG/ML VIAL (*BKC) IM (13:40)
--- NOTE | 2021-06-11 13:48 | ED.FALL ---
HPI - Fall General Chief Complaint: Fall Stated Complaint: fell at work Time Seen by Provider: 06/11/21 13:08 Source: patient History of Present Illness HPI Narrative: Patient presents after a fall. 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 Reports diffuse back pain her primary area of pain in her sacral area. She denies loss of conscious denies any nausea or vomiting denies any focal numbness or weakness. She concerned about the amount of pain she is in so wanted come to the ER for evaluation Related Data Home Medications Medication Instructions Recorded Confirmed albuterol sulfate 0.5 ml INHALATION BID 03/26/20 03/26/20 albuterol sulfate 90 puff INHALATION Q4-6H PRN 03/26/20 03/26/20 lisinopril 10 mg PO DAILY 03/26/20 03/26/20 topiramate 400 mg PO BID 03/26/20 03/26/20 Allergies Allergy/AdvReac Type Severity Reaction Status Date / Time Penicillins Allergy Mild HIVES,VOMIT Verified 09/25/20 17:20 ING codeine Allergy Unknown Other Verified 09/25/20 17:20 Review of Systems Review of Systems: CONSTITUTIONAL: Denies fever, chills, or sweats. EYES: Denies visual changes, redness, or discharge. ENT: Denies rhinorrhea, congestion, sore throat, or otalgia. CARDIOVASCULAR: Denies chest pain, palpitations, or edema. RESPIRATORY: Denies cough or dyspnea. GASTROINTESTINAL: Denies abdominal pain, nausea, vomiting, or diarrhea. GENITOURINARY: Denies dysuria or hematuria. SKIN: Denies rash or itching. MUSCULOSKELETAL: Reports low back pain NEUROLOGIC: Denies headache, numbness, dizziness, or weakness. PSYCHIATRIC: Denies anxiety or depression. All systems reviewed & are unremarkable except as noted in HPI and below PMFSH Past Medical History Medical History Asthma Constipation COPD (chronic obstructive pulmonary disease) Hemorrhoids History of diabetes mellitus, type II Previously on oral medication a over 3 years ago, but was taken off the medication once she had more than 150 pound weight loss. Hypertension Irritable bowel syndrome (IBS) with constipation. Takes Linzess as needed. Sleep apnea compliant with CPAP Surgical History Surgical History History of section x 3 with tubal ligation on last . History of colonoscopy 2 years ago prior to hemorrhoid intervention that was reportedly normal other than findings of the hemorrhoids. History of hemorrhoidectomy History of ventral hernia repair more than 17 years ago. Family History Family History Grandparent Crohn disease Mother Diabetes mellitus Social History Social History Social History: PCP: Dr. Quezada Smoking packs per day: 0.5 Smoking cigarettes per day: 10.0 Years smoked: 24 Smoking pack-years: 12.00 Smoking status: Current every day smoker Tobacco type: cigarettes Alcohol intake: current Alcohol use details: 1-2 times per month. Not on a weekly basis. Substance use: never Additional living arrangements comments: Her aunt and oldest daughter live with her. Additional occupation/education comments: Works at [employer]. Gender identity (if verbalized by the patient): Female Spiritual care concerns: No Exam Narrative: GENERAL: Well-appearing, well-nourished, and in no acute distress. HEAD: Normocephalic, atraumatic. EYES: PERRLA and EOMI. ENT: Nares clear, no rhinorrhea or epistaxis. Mucous membranes moist. NECK: Supple. No masses. No JVD EXTREMITIES: Normal range of motion. No edema. BACK: Diffuse lumbar pain no focal bony tenderness SKIN: Warm, dry, no rash. NEURO: 5 out of 5 strength in all extremities sensation intact to light touch in all extremities alert and oriented x3. PSYCH: Normal
[2021-06-11 14:06] VITALS: BP 134/87; PULSE 72; RESP 16; TEMP 36.6; O2SAT 97
== END 2021-06-11 14:07 | disposition home or self-care (01) ==
PROVIDERS: Emergency Provider Emergency Medicine; PCP Internal Medicine
DX: S30.0XXA Contusion of lower back and pelvis, initial encounter (principal); J44.9 Chronic obstructive pulmonary disease, unspecified; E11.9 Type 2 diabetes mellitus without complications; I10 Essential (primary) hypertension; K58.9 Irritable bowel syndrome, unspecified; G47.30 Sleep apnea, unspecified; F17.210 Nicotine dependence, cigarettes, uncomplicated; W01.0XXA Fall on same level from slipping, tripping and stumbling without subsequent striking against object, initial encounter
CPT/HCPCS: 72100; 96372; 99283; J1885

== ENCOUNTER 2021-08-10 17:48 | Emergency (ER) | payer MEDICAID, SELFPAY ==
--- NOTE | ~2021-08-10 | XR_ITS ---
XR hand RT min 3V 08/10/2021 18:23 Indication: Status post fall. Right hand pain. Procedure: 3 views right hand Comparison: No prior studies for comparison. Findings: There is a fifth metacarpal neck fracture with mild volar angulation. No significant displa cement. No intra-articular extension. Mild soft tissue swelling. No foreign bodies. Impression: 1: Nondisplaced extra-articular fracture right fifth metacarpal neck with volar angulation. Reviewed, dictated and finalized at location A. NING FACILITATOR Impression: 1: Nondisplaced extra-articular fracture right fifth metacarpal neck with volar angulation.
[2021-08-10 18:03] VITALS: BP 163/100; PULSE 80; RESP 18; TEMP 36.9; O2SAT 100
--- NOTE | 2021-08-10 19:09 | ED.UPPEXIN ---
HPI - Extremity Injury (Upper) General Chief Complaint: Extremity Injury, Upper Stated Complaint: right hand injury Time Seen by Provider: 08/10/21 18:57 Source: patient Mode of arrival: ambulatory Limitations: no limitations History of Present Illness HPI narrative: This is a 40 year old female that presents to the ER for right hand injury sustained just prior to arrival. Reports she was falling and caught herself with her right hand on the wall. Reports swelling and bruising to the right hand around the 5th metacarpal. Reports decreased ROM. Denies hitting her head or loss of consciousness. Denies numbness. Related Data Home Medications Medication Instructions Recorded Confirmed albuterol sulfate 0.5 ml INHALATION BID 03/26/20 03/26/20 albuterol sulfate 90 puff INHALATION Q4-6H PRN 03/26/20 03/26/20 lisinopril 10 mg PO DAILY 03/26/20 03/26/20 topiramate 400 mg PO BID 03/26/20 03/26/20 fluticasone propion-salmeterol 1 inh INHALATION Q12H 08/10/21 [Advair Diskus] methimazole [Northyx] 08/10/21 Allergies Allergy/AdvReac Type Severity Reaction Status Date / Time Penicillins Allergy Mild HIVES,VOMIT Verified 08/10/21 19:15 ING codeine Allergy Unknown Other Verified 08/10/21 19:15 Review of Systems Review of Systems: CONSTITUTIONAL: Denies fever MUSCULOSKELETAL: Reports joint pain, and myalgia. NEUROLOGIC: Denies numbness All systems reviewed & are unremarkable except as noted in HPI and below PMFSH Past Medical History Medical History Asthma Constipation COPD (chronic obstructive pulmonary disease) Hemorrhoids History of diabetes mellitus, type II Previously on oral medication a over 3 years ago, but was taken off the medication once she had more than 150 pound weight loss. Hypertension Irritable bowel syndrome (IBS) with constipation. Takes Linzess as needed. Sleep apnea compliant with CPAP Surgical History Surgical History History of section x 3 with tubal ligation on last . History of colonoscopy 2 years ago prior to hemorrhoid intervention that was reportedly normal other than findings of the hemorrhoids. History of hemorrhoidectomy History of ventral hernia repair more than 17 years ago. Family History Family History Grandparent Crohn disease Mother Diabetes mellitus Social History Social History Social History: PCP: Dr. Quezada Smoking packs per day: 0.5 Smoking cigarettes per day: 10.0 Years smoked: 24 Smoking pack-years: 12.00 Smoking status: Current every day smoker Tobacco type: cigarettes Alcohol intake: current Alcohol use details: 1-2 times per month. Not on a weekly basis. Substance use: never Additional living arrangements comments: Her aunt and oldest daughter live with her. Additional occupation/education comments: Works at [employer]. Gender identity (if verbalized by the patient): Female Spiritual care concerns: No Exam Narrative: GENERAL: Well-appearing, well-nourished, and in no acute distress. HEAD: Normocephalic, atraumatic. EYES: EOMI. EXTREMITIES: Normal range of motion. Moderate edema and bruising to the right hand 5th metacarpal bone. Normal radial pulses. Normal sensation SKIN: Warm, dry, no rash. NEURO: No focal deficits. Alert and oriented x3. PSYCH: Normal mood and affect Course Vital Signs Vital signs: Vital Signs Temperature 98.5 F 08/10/21 18:03 Pulse Rate 80 08/10/21 18:03 Respiratory Rate 18 08/10/21 18:03 Blood Pressure 163/100 H 08/10/21 18:03 Pulse Oximetry 100 08/10/21 18:03 Temperature 98.5 F 08/10/21 18:03 Pulse Rate 80 08/10/21 18:03 Respiratory Rate 18 08/10/21 18:03 Blood Pressure 163/100 H 08/10/21 18:03 Pulse Oximetry 100 1
[2021-08-10] MEDS: HYDROcodone/acetaminophen (*CRX) 5-325 MG TABLET 1 TAB PO (19:14)
[2021-08-10 20:29] VITALS: BP 116/59; PULSE 100; RESP 18; TEMP 36.7; O2SAT 100
== END 2021-08-10 20:31 | disposition home or self-care (01) ==
PROVIDERS: Emergency Provider Emergency Medicine; PCP Internal Medicine
DX: S62.366A Nondisplaced fracture of neck of fifth metacarpal bone, right hand, initial encounter for closed fracture (principal); J44.9 Chronic obstructive pulmonary disease, unspecified; E11.9 Type 2 diabetes mellitus without complications; I10 Essential (primary) hypertension; K58.1 Irritable bowel syndrome with constipation; G47.30 Sleep apnea, unspecified; F17.210 Nicotine dependence, cigarettes, uncomplicated; W01.198A Fall on same level from slipping, tripping and stumbling with subsequent striking against other object, initial encounter
CPT/HCPCS: 29125; 73130; 99284; A9270

== ENCOUNTER 2022-07-15 11:05 | Observation (INO) | payer MEDICAID, SELFPAY ==
[2022-07-15] VITALS (12 sets, daily range): BP systolic 83–122; BP diastolic 27–75; PULSE 78–98; RESP 6–20; TEMP 36.2–37.2; O2SAT 97–100; BMI 41.0
--- NOTE | ~2022-07-15 | CT_ITS ---
EXAMINATION: CT abdomen pelvis w con DATE: 07/15/2022 13:49 INDICATION: Rectal pain, constipation. History of rectal abscess. TECHNIQUE: Computed tomography (CT) of the abdomen and pelvis was performed with 100 CC Omnipaque 350 intravenous contrast. Automated exposure control and iterative reconstruction technique were employe d. Exam dose: 1302.98 mGy-cm total exam DLP. COMPARISON: 03/25/2020 CT abdomen pelvis FINDINGS: There is discoid atelectasis or scarring at the base of the lingula and anterior basilar se gment of the left lower lobe. No consolidation at the lung bases. Normal heart size. No pericardial or pleural effusion. No hepatic space-occupying mass lesion. The gallbladder is unremarkable. No bile duct or pancreatic d uct dilatation. No pancreatic mass lesion or calcification. Normal splenic size. Approximately 14 x 18 mm left adrenal mass. If there is no known malignancy, this is most likely an a drenal adenoma. Normal right adrenal gland. No renal mass lesion or urinary tract calculus or hydroureteronephrosis. The urinary bladder, uterus and adnexal areas are unremarkable. Normal caliber of the abdominal aorta. No intraperitoneal or retroperitoneal or pelvic mass lesion or adenopathy or ascites. There is very prominent infiltration of the perirectal adipose tissue and thickening of the rectum. T here is a focal lower attenuation area measuring up to approximately 1.6 x 2.4 cm maximal dimension o n axial view which may represent some phlegmon or early abscess formation of the rectum. Differential diagnosis includes severe proctitis with phlegmon or developing abscess versus rectal carcinoma. No bowel obstruction or intraperitoneal free air. Fat-containing lower anterior abdominal wall hernia. No suspicious osteolytic or osteoblastic lesions are noted. IMPRESSION: Prominent rectal soft tissue thickening and very prominent perirectal soft tissue fat in filtration. A lower attenuation approximately 1.6 x 2.4 cm area in the rectal area may represent phle gmon or early abscess formation. Findings may be consistent with severe proctitis, possible rectal ab scess. Differential diagnosis includes rectal carcinoma Reviewed, dictated and finalized at [facility]. Reviewed, dictated and finalized at [facility]. IMPRESSION: Prominent rectal soft tissue thickening and very prominent perirec mona soft tissue fat infiltration. A lower attenuation approximately 1.6 x 2.4 c m area in the rectal area may represent phlegmon or early abscess formation. Fi ndings may be consistent with severe proctitis, possible rectal abscess. Differ ential diagnosis includes rectal carcinoma
--- NOTE | 2022-07-15 12:50 | ED.GENADULT ---
HPI - General Adult General Chief complaint: Back Pain/Injury Stated complaint: lower back pain Time Seen by Provider: 07/15/22 11:59 History of Present Illness HPI narrative: 41-year-old female presenting the emergency department for evaluation of rectal pain for the last 2 days. Patient reports he does have a history of a rectal abscess. Patient states over the last few days she has had increased difficulty passing stool and reports increased rectal pressure. Patient reports she has been taking medications to help with her constipation without significant improvement. Related Data Home Medications Medication Instructions Recorded Confirmed albuterol sulfate 0.5 ml inhalation BID 03/26/20 07/15/22 albuterol sulfate 90 puff inhalation Q4-6H PRN 03/26/20 07/15/22 Shortness Of Breath lisinopril 10 mg tablet 10 mg PO DAILY 03/26/20 07/15/22 topiramate 400 mg PO BID 03/26/20 07/15/22 fluticasone 500 mcg-salmeterol 50 1 inh inhalation Q12H 08/10/21 07/15/22 mcg/dose blistr powdr for inhalation (Advair Diskus) atorvastatin 10 mg tablet (Lipitor) 10 mg PO DAILY 07/15/22 07/15/22 norethindrone (contraceptive) 0.35 See Rx Instructions .Route .COMPLEX 07/15/22 07/15/22 mg (21) tablet Allergies Allergy/AdvReac Type Severity Reaction Status Date / Time Penicillins Allergy Mild HIVES,VOMIT Verified 07/15/22 15:08 ING codeine Allergy Unknown Other Verified 07/15/22 15:08 Review of Systems Review of Systems: CONSTITUTIONAL: Denies fever, chills, or sweats. EYES: Denies visual changes, redness, or discharge. ENT: Denies rhinorrhea, congestion, sore throat, or otalgia. CARDIOVASCULAR: Denies chest pain, palpitations, or edema. RESPIRATORY: Denies cough or dyspnea. GASTROINTESTINAL: See HPI GENITOURINARY: Denies dysuria or hematuria. SKIN: Denies rash or itching. MUSCULOSKELETAL: Denies back pain, joint pain, or myalgia. NEUROLOGIC: Denies headache, numbness, or weakness. [facility] Past Medical History Medical History Asthma Constipation COPD (chronic obstructive pulmonary disease) Hemorrhoids History of diabetes mellitus, type II Previously on oral medication a over 3 years ago, but was taken off the medication once she had more than 150 pound weight loss. Hypertension Irritable bowel syndrome (IBS) with constipation. Takes Linzess as needed. Sleep apnea compliant with CPAP Surgical History Surgical History History of section x 3 with tubal ligation on last . History of colonoscopy 2 years ago prior to hemorrhoid intervention that was reportedly normal other than findings of the hemorrhoids. History of hemorrhoidectomy History of ventral hernia repair more than 17 years ago. Family History Family History Grandparent Crohn disease Mother Diabetes mellitus Social History Social History Social History: PCP: Dr. Quezada Smoking packs per day: 0.5 Smoking cigarettes per day: 10.0 Years smoked: 25 Smoking pack-years: 12.50 Smoking status: Current every day smoker Tobacco type: cigarettes Alcohol intake: current Alcohol use details: 1-2 times per month. Not on a weekly basis. Substance use: never Substance use type: does not use Has the Lack of Transportation Kept You From Medical Appointments or From Getting Medications?: No Within the Past 12 Months, Were You Worried Whether Your Food Would Run Out Before You Got Money to Buy More?: Never True What is Your Housing Situation Today?: I Have Housing Are You Worried That in the Next 2 Months, You May Not Have Your Own Housing to Live In?: No Do You Have Trouble Paying Your Heating Or Electricity Bill?: No Do You Have Trouble Paying For Medicines?: No Are You Currently Unemployed and Looki
[2022-07-15 13:11] LABS: Basophils Percent Auto 0.3 % (0.2-1.2); Eosinophils Absolute Auto 0.1 K/mm3 (0-0.3); Eosinophils Percent Auto 1.5 % (0-4.4); Hematocrit 37.3 % (37.0-47.0); Hemoglobin 12.4 g/dL (12.0-15.0); Immature Granulocyte Absolute 0.03 K/mm3 (0.00-0.031); Immature Granulocyte Percent A 0.3 % (0-0.5); Lymphocytes Absolute Auto 1.51 K/mm3 (0.9-3.2); Mean Corpuscular HGB Conc 33.2 g/dl (32-36); Mean Corpuscular Hemoglobin 33.2 pg (26-34); Mean Corpuscular Volume 99.7 fl (80-100); Mean Platelet Volume 10.4 fl (7.4-10.4); Monocytes Absolute Auto 0.8 K/mm3 (0.1-0.6); Monocytes Percent Auto 7.9 % (2.6-8.5); Platelet Count Result 200 k/mm3 (150-375); Red Blood Count 3.74 M/mm3 (4.2-5.4); Red Cell Distribution Width 12.4 % (11.5-14.5); White Blood Count 9.5 K/mm3 (4.5-10.0)
[2022-07-15] MEDS: SODIUM CHLORIDE 0.9% IV 1,000 ML 999 ML IV CONT (13:13)
[2022-07-15] MEDS: HYDROmorphone HCL INJ (*CRX) 1 MG/ML SYR 0.5 MG IV PUSH (13:13)
[2022-07-15 13:22] LABS: Alanine Aminotransferase 30 U/L (6-35); Alkaline Phosphatase 68 U/L (38-126); Anion Gap 12 mmol/L (8-16); Aspartate Amino Transferase 21 U/L (14-36); Bilirubin,Total 0.6 mg/dL (0.2-1.3); Blood Urea Nitrogen 18 mg/dL (7-17); Carbon Dioxide 22 mmol/L (22-30); Chloride 106 mmol/L (98-107); Estimated CRCL calculation 62 ml/min; Estimated Glomerular Filt Rate 45; Glucose 91 mg/dL (65-110); Potassium 3.8 mmol/L (3.4-5.0); Sodium 140 mmol/L (137-145)
--- NOTE | 2022-07-15 15:05 | PC.NURSE ---
Dr Beavers in room assessing and discussing risks and benefits of OR. consent obtained at this time
--- NOTE | 2022-07-15 15:22 | WPDANESEPPF ---
Anes - Initial Pre Proc Eval Procedure: Operation Date: 07/15/22 15:00 Proposed Procedures p Incision and Drainage Adriana-Rectal Abscess - Son Beavers MD Date/Time: 07/15/22 15:22 Surgeon: Son Beavers MD Pre Op Diagnosis: lower back pain Patient Data Age: 41 Gender: F Height: 1.65 m Weight: 108.86 kg Last Vital Signs Temp 36.2 C L 07/15/22 15:10 Pulse 78 07/15/22 15:10 Resp 20 07/15/22 15:10 BP 122/73 07/15/22 15:10 Pulse Ox 100 07/15/22 15:10 O2 Del Method Room Air 07/15/22 11:24 Allergies Allergy/AdvReac Type Severity Reaction Status Date / Time Penicillins Allergy Mild HIVES,VOMIT Verified 07/15/22 15:08 ING codeine Allergy Unknown Other Verified 07/15/22 15:08 Home Medications Medication Instructions Recorded Confirmed Type albuterol sulfate 0.5 ml inhalation BID 03/26/20 03/26/20 History albuterol sulfate 90 puff inhalation Q4-6H PRN 03/26/20 03/26/20 History Asystole lisinopril 10 mg tablet 10 mg PO DAILY 03/26/20 03/26/20 History topiramate 400 mg PO BID 03/26/20 03/26/20 History hydrocodone 5 mg-acetaminophen 325 1 tablet PO Q4H PRN pain #10 tabs 03/28/20 Rx mg tablet ([place]) levofloxacin 750 mg tablet 750 mg PO DAILY #7 tabs 03/28/20 Rx (Levaquin) mesalamine 1,000 mg rectal 1 gm RECTAL HS #30 ea 03/28/20 Rx suppository ([place]) metronidazole 500 mg tablet 500 mg PO Q8H #21 tabs 03/28/20 Rx (Flagyl) ibuprofen 600 mg tablet (IBU) 600 mg PO Q6H PRN pain #20 tabs 09/25/20 Rx cyclobenzaprine 10 mg tablet 10 mg PO TID PRN muscle spasm #30 06/11/21 Rx tabs fluticasone 500 mcg-salmeterol 50 1 inh inhalation Q12H 08/10/21 History mcg/dose blistr powdr for inhalation (Advair Diskus) hydrocodone 5 mg-acetaminophen 325 1 tablet PO Q6H PRN pain #14 tabs 08/10/21 Rx mg tablet methimazole 5 mg tablet 08/10/21 History Laboratory Tests 07/15/22 07/15/22 13:01 13:01 WBC 9.5 K/mm3 K/mm3 (4.5-10.0) RBC 3.74 M/mm3 L M/mm3 (4.2-5.4) Hgb 12.4 g/dL g/dL (12.0-15.0) Hct 37.3 % % (37.0-47.0) MCV 99.7 fl fl (80-100) MCH 33.2 pg pg (26-34) MCHC 33.2 g/dl g/dl (32-36) RDW 12.4 % % (11.5-14.5) Plt Count 200 k/mm3 k/mm3 (150-375) MPV 10.4 fl fl (7.4-10.4) Immature Gran % (Auto) 0.3 % % (0-0.5) Neut % (Auto) 74.0 % H % (45.5-73.1) Lymph % (Auto) 16.0 % L % (18.3-44.2) [place] % (Auto) 7.9 % % (2.6-8.5) Eos % (Auto) 1.5 % % (0-4.4) Baso % (Auto) 0.3 % % (0.2-1.2) Lymph # (Auto) 1.51 K/mm3 K/mm3 (0.9-3.2) [place] # (Auto) 0.8 K/mm3 H K/mm3 (0.1-0.6) Eos # (Auto) 0.1 K/mm3 K/mm3 (0-0.3) Baso # (Auto) 0.0 K/mm3 K/mm3 (0.0-0.1) Abs Immat Gran (auto) 0.03 K/mm3 K/mm3 (0.00-0.031) Absolute Neuts (auto) 7.0 K/mm3 H K/mm3 (1.3-6.7) Absolute Nucleated RBC 0.0 K/mm3 K/mm3 (0.0-0.012) Nucleated RBC % 0.0 % % (0.0-0.2) Sodium 140 mmol/L mmol/L (137-145) Potassium 3.8 mmol/L mmol/L (3.4-5.0) Chloride 106 mmol/L mmol/L (98-107) Carbon Dioxide 22 mmol/L mmol/L (22-30) Anion Gap 12 mmol/L mmol/L (8-16) BUN 18 mg/dL H mg/dL (7-17) Creatinine 1.30 mg/dL H mg/dL (0.7-1.0) Estim Creat Clear Calc 62 ml/min ml/min Estimated GFR 45 L (59 - ) Glucose 91 mg/dL mg/dL (65-110) Calcium 9.0 mg/dL mg/dL (8.4-10.2) Total Bilirubin 0.6 mg/dL mg/dL (0.2-1.3) AST 21 U/L U/L (14-36) ALT 30 U/L U/L (6-35) Alkaline Phosphatase 68 U/L U/L (38-126) Total Protein 7.0 g/dL g/dL (6.3-8.2) Albumin 4.0 g/dL g/dL (3.5-5.1) Patient hx anesthesia problems: post op nausea/vomiting Family hx anesthesia problems: none Results Review: All pre-operative results and documents have been reviewed as part of the pre-operative e
[2022-07-15] MEDS: SCOPOLAMINE 1.5 MG PATCH TRANSDERM (15:28)
[2022-07-15] MEDS: LACTATED RINGERS 1,000 ML 30 ML IV CONT (15:28)
--- NOTE | 2022-07-15 15:29 | PM.IMHP ---
H&P: HPI History of Present Illness Date/Time: 07/15/22 15:29 Chief Complaint: Rectal pain, constipation Narrative: Patient is a 41-year-old woman who developed rectal pain and constipation about 3 days ago. This got progressively worse and she came to the emergency room today. She had similar symptoms 2 years ago. Reviewing those records, she was taken to surgery by Dr. Drummond for rectal exam under anesthesia possible incision and drainage of perirectal abscess. At surgery, no abscess was found and the patient was treated for proctitis with mesalamine 1000 mg suppositories for 30 days. 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 She had a colonoscopy 4 years ago which was negative. Her current symptoms are very similar to what she had in 2020. Her exam shows exquisite right-sided rectal tenderness with some scarring there. She is taken to surgery now for incision and drainage of perirectal abscess. She has irritable bowel syndrome with chronic constipation and takes Linzess for this. She has lost 150 lb in the past. Her BMI is still right at 40. She has obstructive sleep apnea and is on CPAP at home. She also is a smoker and has COPD. Review of Systems Review of Systems: All systems reviewed & are unremarkable except as noted in HPI and below (HPI and those items noted below) Constitutional: Constitutional: Denies chills and Denies fever(s) Cardiovascular: Cardiovascular: Denies chest pain, Denies diaphoresis, Denies dyspnea and Denies paroxysmal nocturnal dyspnea Respiratory: Respiratory: Denies chest congestion, Denies cough and Denies dyspnea Gastrointestinal: Gastrointestinal: Reports as per HPI, Reports change in bowel habits, Reports constipation, Denies nausea and Denies vomiting Integumentary/Breasts: Skin/Breast: Denies lesions and Denies rash PMF Past Medical History Medical History Asthma Constipation COPD (chronic obstructive pulmonary disease) Hemorrhoids History of diabetes mellitus, type II Previously on oral medication a over 3 years ago, but was taken off the medication once she had more than 150 pound weight loss. Hypertension Irritable bowel syndrome (IBS) with constipation. Takes Linzess as needed. Sleep apnea compliant with CPAP Surgical History Surgical History History of section x 3 with tubal ligation on last . History of colonoscopy 2 years ago prior to hemorrhoid intervention that was reportedly normal other than findings of the hemorrhoids. History of hemorrhoidectomy History of ventral hernia repair more than 17 years ago. Family History Family History Grandparent Crohn disease Mother Diabetes mellitus Social History Social History Social History: PCP: Dr. Quezada Smoking packs per day: 0.5 Smoking cigarettes per day: 10.0 Years smoked: 24 Smoking pack-years: 12.00 Smoking status: Current every day smoker Tobacco type: cigarettes Alcohol intake: current Alcohol use details: 1-2 times per month. Not on a weekly basis. Substance use: never Additional living arrangements comments: Her aunt and oldest daughter live with her. Additional occupation/education comments: Works at [employer]. Gender identity (if verbalized by the patient): Female Spiritual care concerns: No Meds Home Medications and Allergies Home Medications Medication Instructions Recorded Confirmed Type albuterol sulfate 0.5 ml inhalation BID 03/26/20 03/26/20 History albuterol sulfate 90 puff inhalation Q4-6H PRN 03/26/20 03/26/20 History Asystole lisinopril 10 mg tablet 10 mg PO DAILY 03/26/20 03/26/20 History topiramate 400 mg PO BID 03/26/20 03/26/20 History hydrocodone 5 mg-acetaminophen
--- NOTE | 2022-07-15 15:33 | WPDHPUPDATE1 ---
History and Physical Update Update Date/Time: 07/15/22 15:33 History and Physical has been reviewed, including an updated exam of the patient. There are NO changes in the patient's condition. Risks, benefits, and alternatives have been discussed and questions answered. Patient agrees to proceed with procedure.
[2022-07-15] MEDS: KETOROLAC 30 MG/ML VIAL (*BKC) IV PUSH (15:35)
[2022-07-15] MEDS: ceFAZolin 2 GM/D5W 50 ML 2 GM/50 ML BAG IVPB (15:39)
[2022-07-15] MEDS: fentaNYL CITRATE INJ (*CRX) 100 MCG/2 ML VIAL 25 MCG IV PUSH ×4 (17:01→17:40)
--- NOTE | 2022-07-15 17:21 | P.OP_ITS ---
Procedure Note - Detailed Date of Procedure 07/15/22 Pre-op Diagnosis Anal fistula, perirectal abscess Post-op Diagnosis Same Procedure Performed Incision and drainage of rectal abscess, placement seton Surgeon Son Beavers MD Slitting Machine Operator Helper Tamera Hadley [facility] Anesthesia General Indications Patient presented with rectal pain and constipation for [address] scan suggests possibly a perirectal abscess. She is taken to surgery now for incision and drainage. She is suspected to have an anal fistula as she did have the same symptoms 2 years ago. Also there was some scarring on the anoderm just to the right of the posterior midline. Findings There was no perirectal evidence of an abscess. However, after placing a Hill- Ariza anoscope, a right posterior rectal submucosal bulge was noted and felt like a small ball with some fluctuance. This was more proximal in the distal rectum than 1 would expect for a routine perirectal abscess. This in fact was an abscess in the distal rectum. Probing the abscess opening led back to the scarring of the anoderm just to the right of the posterior midline suggestive of a fistula, possibly an extra sphincteric fistula. Description of Procedure The patient was taken to surgery and induced into general anesthesia. She was then turned in a prone artur-knife position. The buttocks were taped apart. Prep and drape was carried out. I gently inspected the perianal skin and the scarring noted above was appreciated. Some of the rectal mucosa seemed to come to the anoderm. This was noted in the anterior midline and to the left of the posterior midline. No fluctuant or irritated perianal skin suggestive of perirectal abscess was appreciated. With the Hill-Ariza anoscope in place, and having seen the CT scan, I then probed in the rectum and found a 3 cm extra mucosal mass that was symmetric. The surface of it had some fluctuance associated with it. This was at least 2 or 3 cm proximal to the dentate line. It was was in the distal rectum. I used an 18 gauge needle and a syringe. I aspirated pus from this submucosal mass. I then used a scalpel and drained the mass. There was quite a bit of purulent fluid consistent with an abscess. I then used a rectal probe and bended back somewhat like a hook. I tried to probe for an easy fistulous connection. It was not easily found but eventually protruding almost directly towards the anus an opening was found that connected to the scar tissue seen. Eventually the probe was just below the skin. I opened the skin and made a connection between the probe and the perianal skin. I was able to pass a small curved clamp from the abscess through this perianal opening and then passed a seton through the fistula tract. The seton was actually a red vessel loop. 2-0 silk was used to secure the ends of the seton to 1 another. I cut off the excess so this was a short circular seton. There was no evidence of additional anorectal pathology. We dressed the rectum with X eroform gauze fluffs and Medipore tape. The patient was returned to a supine position, awakened and extubated. She was then taken to recovery in stable condition. Estimated Blood Loss -5.0 Drains Yes (Seton in anal fistula tract) Packing No Pathology None sent Complications No immediate complications Condition Stable Disposition PACU [facility] Billing Surgery - Charge Forward: Surgery Billing (Incision and drainage of rectal abscess, seton placement fistula in ANO)
--- NOTE | 2022-07-15 18:26 | ADMGEN ---
This patient, Carolina Shah, was admitted to Medical Room 249-01. Patient/family oriented to hospital policies and general routines including ID bracelet, bed and alarms, visiting hours, pain management, procedures, bathroom and other care routines, personal items, smoking policy, room service/diet, and visiting hours. Information on how to activate the Rapid Response Team has been discussed. Patient/Family are encouraged to report perceived risks to care and to ask questions if they do not understand what they are told or what they should do.
[2022-07-15] MEDS: HYDROcodone/acetaminophen (*CRX) 5-325 MG TABLET 1 TAB PO (18:42)
[2022-07-15] MEDS: MORPHINE SULFATE (*CRX) 2 MG/ML INJ IV PUSH (21:42)
[2022-07-16 01:17] VITALS: BP 96/60; PULSE 77; RESP 16; TEMP 37.1; O2SAT 98
[2022-07-16] MEDS: IBUPROFEN IV 800 MG/200 ML 800 MG/200 ML BAG 400 MG IVPB (01:25)
[2022-07-16 03:57] VITALS: PULSE 91; O2SAT 99
[2022-07-16 06:08] VITALS: BP 104/60; PULSE 73; RESP 16; TEMP 36.6; O2SAT 99
[2022-07-16 06:28] LABS: Anion Gap 9 mmol/L (8-16); Blood Urea Nitrogen 15 mg/dL (7-17); Carbon Dioxide 19 mmol/L (22-30); Chloride 109 mmol/L (98-107); Estimated CRCL calculation 74 ml/min; Estimated Glomerular Filt Rate 54; Glucose 84 mg/dL (65-110); Potassium 4.2 mmol/L (3.4-5.0); Sodium 137 mmol/L (137-145)
[2022-07-16 07:29] LABS: Hematocrit 32.1 % (37.0-47.0); Hemoglobin 10.7 g/dL (12.0-15.0); Mean Corpuscular HGB Conc 33.3 g/dl (32-36); Mean Corpuscular Hemoglobin 32.9 pg (26-34); Mean Corpuscular Volume 98.8 fl (80-100); Mean Platelet Volume 10.8 fl (7.4-10.4); Platelet Count Result 185 k/mm3 (150-375); Red Blood Count 3.25 M/mm3 (4.2-5.4); Red Cell Distribution Width 12.3 % (11.5-14.5); White Blood Count 7.6 K/mm3 (4.5-10.0)
[2022-07-16] MEDS: PSYLLIUM POWDER PACKET 1 PACKET PO (08:24)
[2022-07-16] MEDS: MINERAL OIL 30 ML UDC 15 ML PO (08:24)
[2022-07-16] MEDS: ENOXAPARIN 40 MG/0.4 ML SYRINGE SUB-Q (08:24)
[2022-07-16] MEDS: HYDROcodone/acetaminophen (*CRX) 10-325 MG TABLET 1 TAB PO (10:23)
--- NOTE | 2022-07-16 10:43 | PM.DS ---
DS: Admitting Diagnosis Discharge Date 07/16/2022 Admitting Diagnosis rectal pain constipation morbid obesity BMI greater than 40 sleep apnea COPD smoker DS: Discharge Diagnosis Discharge Diagnosis (1) Anal fistula: Code(s): K60.3 - Anal fistula Status: Acute (2) Abscess of rectum: Code(s): K61.1 - Rectal abscess Status: Acute (3) Rectal pain: Code(s): K62.89 - Other specified diseases of anus and rectum Status: Acute (4) Constipation: Code(s): K59.00 - Constipation, unspecified Status: Acute (5) Tobacco abuse: Code(s): Z72.0 - Tobacco use Status: Chronic (6) Sleep apnea: Code(s): G47.30 - Sleep apnea, unspecified Status: Chronic (7) COPD (chronic obstructive pulmonary disease): Code(s): J44.9 - Chronic obstructive pulmonary disease, unspecified Status: Chronic (8) Morbid obesity with BMI of 40.0-44.9, adult: Code(s): E66.01 - Morbid (severe) obesity due to excess calories; Z68.41 - Body mass index [BMI] 40.0-44.9, adult Status: Chronic DS: Summary Hospital Course Reason for hospitalization: This is a 41-year-old obese woman who presented to the ER yesterday with complaints of rectal pain and constipation for 3 days. She had similar symptoms 2 years ago with reviewing her records. She was taken to surgery by Dr. Drummond for rectal exam under anesthesia possible I&D of perirectal abscess. At surgery, no abscess was found and the patient was treated for proctitis with mesalamine suppositories for 30 days. 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 She had a colonoscopy 4 years ago which was negative. On exam, she had exquisite right sided rectal tenderness with some scarring. Decision was to take her to surgery for I and D of perirectal abscess by Dr. Beavers yesterday. Hospital Course: During surgery, she was found to have an anal fistula and rectal abscess. She had incision and drainage of the rectal abscess with placement of a seton drain. She was admitted overnight for observation. This morning, her rectal pain has significantly improved. She is tolerating her diet. She has been started on b.i.d. mineral oil and Metamucil. She is stable for discharge. Instructed her to continue taking Sitz baths on discharge. Will have her follow-up with Dr. Beavers in 2 weeks. Time spent discussing smoking cessation with patient: 3 to 10 minutes Status at Discharge Functional status at discharge: independent ambulation Overall status at discharge: patient is progressing back to baseline Time Spent with Patient Time attestation: Total time spent providing and/or coordinating discharge services: Time spent: Less than 30 minutes Exam Const: General: alert; No acute distress Orientation/consciousness: patient oriented x3 GI: Inspection: non-distended GI Palp: Yes Soft to palpation, No Tenderness to palpation present (GI), No Guarding due to palpation present (GI) and No Rebound tenderness present Auscultation: normal bowel sounds Rectal Exam: deferred and other (gauze dressing dry and intact) DS: Data Data Completed and Pending Labs on day of discharge: Labs from last 24 hours 07/16/22 07/16/22 07/15/22 06:52 05:27 13:01 WBC 7.6 RBC 3.25 L Hgb 10.7 L Hct 32.1 L MCV 98.8 MCH 32.9 MCHC 33.3 RDW 12.3 Plt Count 185 MPV 10.8 H Immature Gran % (Auto) Neut % (Auto) Lymph % (Auto) [place] % (Auto) Eos % (Auto) Baso % (Auto) Lymph # (Auto) [place] # (Auto) Eos # (Auto) Baso # (Auto) Abs Immat Gran (auto) Absolute Neuts (auto) Absolute Nucleated RBC Nucleated RBC % Sodium 137 140 Potassium 4.2 3.8 Chloride 109 H 106 Carbon Dioxide 19 L 22 Anion Gap 9 12 BUN 15 18 H Creatinine 1.10 H 1.30 H Estim Creat Clear Calc 74 62 Estimated GFR 54 L 45 L Glucose 84 91 Calcium 8.0
--- NOTE | 2022-07-16 11:59 | P.PNAN_ITS ---
Anes - Prog Note Post-Op Date/Time: 07/16/22 11:59 Cardiovascular status: normal Respiratory status: normal Airway patency: baseline Mental status: baseline Post-Op hydration status: normal Vital Signs: Last Vital Signs Temp 36.6 C 07/16/22 06:08 Pulse 73 07/16/22 06:08 Resp 16 07/16/22 06:08 BP 104/60 07/16/22 06:08 Pulse Ox 99 07/16/22 06:08 O2 Del Method Room Air 07/15/22 17:35 O2 Flow Rate 8 07/15/22 16:45 Pain Score (VAS): 10/23 I/O: Intake & Output 07/15/22 07/16/22 07/16/22 23:59 07:59 15:59 Intake Total 950 750 0 Balance 950 750 0 Laboratory Tests 07/16/22 06:52 07/16/22 05:27 07/15/22 07/15/22 07/16/22 13:01 13:01 05:27 WBC 9.5 RBC 3.74 L Hgb 12.4 Hct 37.3 MCV 99.7 MCH 33.2 MCHC 33.2 RDW 12.4 Plt Count 200 MPV 10.4 Immature Gran % (Auto) 0.3 Neut % (Auto) 74.0 H Lymph % (Auto) 16.0 L [place] % (Auto) 7.9 Eos % (Auto) 1.5 Baso % (Auto) 0.3 Lymph # (Auto) 1.51 [place] # (Auto) 0.8 H Eos # (Auto) 0.1 Baso # (Auto) 0.0 Abs Immat Gran (auto) 0.03 Absolute Neuts (auto) 7.0 H Absolute Nucleated RBC 0.0 Nucleated RBC % 0.0 Sodium 140 137 Potassium 3.8 4.2 Chloride 106 109 H Carbon Dioxide 22 19 L Anion Gap 12 9 BUN 18 H 15 Creatinine 1.30 H 1.10 H Estim Creat Clear Calc 62 74 Estimated GFR 45 L 54 L Glucose 91 84 Calcium 9.0 8.0 L Total Bilirubin 0.6 AST 21 ALT 30 Alkaline Phosphatase 68 Total Protein 7.0 Albumin 4.0 07/16/22 06:52 WBC 7.6 RBC 3.25 L Hgb 10.7 L Hct 32.1 L MCV 98.8 MCH 32.9 MCHC 33.3 RDW 12.3 Plt Count 185 MPV 10.8 H Immature Gran % (Auto) Neut % (Auto) Lymph % (Auto) [place] % (Auto) Eos % (Auto) Baso % (Auto) Lymph # (Auto) [place] # (Auto) Eos # (Auto) Baso # (Auto) Abs Immat Gran (auto) Absolute Neuts (auto) Absolute Nucleated RBC Nucleated RBC % Sodium Potassium Chloride Carbon Dioxide Anion Gap BUN Creatinine Estim Creat Clear Calc Estimated GFR Glucose Calcium Total Bilirubin AST ALT Alkaline Phosphatase Total Protein Albumin Post-procedural complaints: none Patient Feedback: Patient satisfied with anesthetic care.
== END 2022-07-16 12:07 | disposition home or self-care (01) ==
LOC: ANHED 15:04 → ANHSURGERY 15:07 → ANH2MED 17:55 → ANHSURGERY 07-16 08:35 → ANH2MED 07-16 08:35
PROVIDERS: Admitting Provider Surgery; Emergency Provider Emergency Medicine; PCP Internal Medicine; Visit Provider Surgery
PROC: (CPT 46040; principal; 2022-07-15 15:00)
DX: K60.3 Anal fistula (principal); R53.1 Weakness; K59.00 Constipation, unspecified; K64.9 Unspecified hemorrhoids; E11.9 Type 2 diabetes mellitus without complications; K58.9 Irritable bowel syndrome, unspecified; G47.33 Obstructive sleep apnea (adult) (pediatric); Z99.89 Dependence on other enabling machines and devices; E66.01 Morbid (severe) obesity due to excess calories; Z68.41 Body mass index [BMI] 40.0-44.9, adult; J44.9 Chronic obstructive pulmonary disease, unspecified; Z83.79 Family history of other diseases of the digestive system; Z83.3 Family history of diabetes mellitus; F17.210 Nicotine dependence, cigarettes, uncomplicated; Z79.1 Long term (current) use of non-steroidal anti-inflammatories (NSAID); Z79.51 Long term (current) use of inhaled steroids; Z79.891 Long term (current) use of opiate analgesic; Z79.899 Other long term (current) drug therapy
CPT/HCPCS: 45005; 46020; 36415; 74177; 80048; 80053; 81025; 85025; 85027; 96361; 96374; 99285; A9270; G0378; G0379; J0330; J0690; J1100; J1170; J1650; J1741; J1885; J2250; J2270; J2405; J2704; J3010; J7030; J7120; Q9967

== ENCOUNTER 2023-03-30 12:47 | Outpatient (CLI) | payer MEDICAID, SELFPAY ==
--- NOTE | ~2023-03-30 | MR_ITS ---
MRI of the lumbar spine Clinical History: Back pain Technique: Axial T2-weighted images, and sagittal T1-weighted, T2-weighted, and and T2 fat-sat images were acquired. Findings: There is no fracture or subluxation of the lumbar spine. Vertebral bodies maintain normal h eight and alignment. No bone marrow signal abnormality seen. At L1-L2, L2-L3, L3-L4, L4-L5, there is no disc bulge or herniation. There is moderate to advanced fa cet arthropathy at L4-L5. There is mild facet arthropathy the remainder of the levels. No central can al stenosis or neural foraminal narrowing at these levels. At L5-S1, there is minimal disc desiccation. There is tiny disc bulge with tiny annular fissure. Ther e is mild facet arthropathy. No central canal stenosis or neural foraminal narrowing. Paravertebral soft tissues are unremarkable. Impression: Mild degenerative spondylosis overall, as detailed above. Reviewed, dictated and finalized at location . Impression: Mild degenerative spondylosis overall, as detailed above.
== END 2023-03-30 12:48 | disposition home or self-care (01) ==
PROVIDERS: PCP Internal Medicine; Visit Provider Internal Medicine
DX: M47.816 Spondylosis without myelopathy or radiculopathy, lumbar region (principal)
CPT/HCPCS: 72148

== ENCOUNTER 2023-05-02 10:32 | Emergency (ER) | payer MEDICAID, SELFPAY ==
[2023-05-02 10:42] VITALS: BP 130/66; PULSE 89; RESP 16; TEMP 36.3; O2SAT 100
[2023-05-02] MEDS: CARBAMIDE PEROXIDE 6.5% OT SOLN 15 ML BTL 5 DROP LEFT EAR (12:23)
--- NOTE | 2023-05-02 12:53 | ED.EAR ---
HPI - Ear Problem General Chief complaint: Ear Stated complaint: left ear complaint Time Seen by Provider: 05/02/23 10:42 Source: patient Mode of arrival: ambulatory Limitations: no limitations History of Present Illness HPI Narrative: Patient is a 42 y/o female who presents to the ED with c/o decreased hearing from left ear. Patient reports she first noticed this last night, which persisted into today. She denies ever having previous similar symptoms. She denies any significant pain to the left ear. Denies drainage. Denies issues with right ear. Denies recent cough or congestion, cold symptoms, fevers. Denies dizziness or lightheadedness. Related Data Home Medications Medication Instructions Recorded Confirmed albuterol sulfate 0.5 ml inhalation BID 03/26/20 08/25/22 albuterol sulfate 90 puff inhalation Q4-6H PRN 03/26/20 08/25/22 Shortness Of Breath lisinopril 10 mg tablet 10 mg PO DAILY 03/26/20 08/25/22 topiramate 400 mg PO BID 03/26/20 08/25/22 fluticasone 500 mcg-salmeterol 50 1 inh inhalation Q12H 08/10/21 08/25/22 mcg/dose blistr powdr for inhalation (Advair Diskus) atorvastatin 10 mg tablet (Lipitor) 10 mg PO DAILY 07/15/22 08/25/22 norethindrone (contraceptive) 0.35 See Rx Instructions .Route .COMPLEX 07/15/22 08/25/22 mg (21) tablet Allergies Allergy/AdvReac Type Severity Reaction Status Date / Time Penicillins Allergy Mild HIVES,VOMIT Verified 05/02/23 11:03 ING codeine Allergy Unknown Other Verified 05/02/23 11:03 Review of Systems Review of Systems: CONSTITUTIONAL: Denies fever, chills, or sweats. EYES: Denies visual changes, redness, or discharge. ENT: See HPI. CARDIOVASCULAR: Denies chest pain. RESPIRATORY: Denies cough or dyspnea. GASTROINTESTINAL: Denies abdominal pain, nausea, vomiting. NEUROLOGIC: Denies headache, dizziness, numbness, or weakness. All systems reviewed & are unremarkable except as noted in HPI and below PMFSH Past Medical History Medical History Asthma Constipation COPD (chronic obstructive pulmonary disease) Hemorrhoids History of diabetes mellitus, type II Previously on oral medication a over 3 years ago, but was taken off the medication once she had more than 150 pound weight loss. Hypertension Irritable bowel syndrome (IBS) with constipation. Takes Linzess as needed. Sleep apnea compliant with CPAP Surgical History Surgical History History of section x 3 with tubal ligation on last . History of colonoscopy 2 years ago prior to hemorrhoid intervention that was reportedly normal other than findings of the hemorrhoids. History of hemorrhoidectomy History of ventral hernia repair more than 17 years ago. Status post incision and drainage Rectal Abscess on 07/15/22 Family History Family History Grandparent Crohn disease Mother Diabetes mellitus Social History Social History Social History: PCP: Dr. Quezada Smoking packs per day: 0.5 Smoking cigarettes per day: 10.0 Years smoked: 25 Smoking pack-years: 12.50 Smoking status: Current every day smoker Tobacco type: cigarettes Alcohol intake: current Alcohol use details: 1-2 times per month. Not on a weekly basis. Substance use: never Substance use type: does not use Lack of Transportation: No Lack of Food: Never True Current Housing: I Have Housing Concerned About Future Housing: No Difficulty Paying Gas/Electric Bills: No Difficulty Paying for Meds: No Currently Unemployed: No Education: Grade School Difficulty w/ Childcare or Family Care: No Living arrangements: with family Additional living arrangements comments: Her aunt and oldest daughter live with her. 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
== END 2023-05-02 14:35 | disposition home or self-care (01) ==
PROVIDERS: Emergency Provider Physician Assistant; PCP Internal Medicine
DX: H61.22 Impacted cerumen, left ear (principal); J44.9 Chronic obstructive pulmonary disease, unspecified; E11.9 Type 2 diabetes mellitus without complications; I10 Essential (primary) hypertension; K58.1 Irritable bowel syndrome with constipation; G47.30 Sleep apnea, unspecified; F17.210 Nicotine dependence, cigarettes, uncomplicated
CPT/HCPCS: 69209; 99282; A9270